=== PATIENT | male | born 1980 | race Caucasian/White ===

== ENCOUNTER 2020-12-05 22:51 | Emergency (ER) | payer OTHER, SELFPAY ==
--- NOTE | ~2020-12-05 | XR_ITS ---
XR knee RT 3V DATE: 12/05/2020 23:50 INDICATION: Fall. Lateral right knee pain. TECHNIQUE: 3 views COMPARISON: None FINDINGS: No fracture or dislocation or joint effusion. No periosteal reaction or bone destruction. N o radiopaque intra-articular loose body or chondrocalcinosis. Knee joint spaces appear preserved. IMPRESSION: Negative Reviewed, dictated and finalized at location A. IMPRESSION: Negative
--- NOTE | ~2020-12-05 | XR_ITS ---
XR ankle RT min 3V DATE: 12/05/2020 23:50 INDICATION: Fall. Lateral right ankle pain TECHNIQUE: 4 views COMPARISON: None FINDINGS: No fracture or dislocation of the ankle or disruption of ankle mortise. No periosteal react ion or bone destruction. IMPRESSION: Negative Reviewed, dictated and finalized at location A. IMPRESSION: Negative
--- NOTE | ~2020-12-05 | XR_ITS ---
XR wrist RT min 3V DATE: 12/05/2020 23:51 INDICATION: Fall. Medial wrist pain. TECHNIQUE: 4 views COMPARISON: None FINDINGS: No fracture or dislocation, periosteal reaction or bone destruction, joint space narrowing, erosive change or chondrocalcinosis. IMPRESSION: Negative Reviewed, dictated and finalized at location A. IMPRESSION: Negative
[2020-12-05 23:02] VITALS: BP 130/87; PULSE 75; RESP 16; TEMP 36.4; O2SAT 98
--- NOTE | 2020-12-06 00:18 | ED.GENADULT ---
HPI - General Adult General Chief complaint: Wound/Laceration Stated complaint: wrist lac Time Seen by Provider: 12/05/20 23:11 Source: patient and family Mode of arrival: ambulatory Limitations: no limitations History of Present Illness HPI narrative: Patient is a 40-year-old male who presents to emergency department for evaluation of laceration to the right wrist patient tripped while carrying a bottle cutting the wrist. Patient notes mild aching pain worse with touch and activity. Patient notes tetanus to be up-to-date. Patient also notes mild pain to the lateral right knee and ankle. Patient presents per private vehicle in no distress. Patient denies other complaints at this time Related Data Home Medications Medication Instructions Recorded Confirmed omeprazole 07/28/19 Allergies Allergy/AdvReac Type Severity Reaction Status Date / Time Sulfa (Sulfonamide Allergy Unknown Verified 04/20/14 13:14 Antibiotics) Review of Systems Review of Systems: All systems reviewed & are unremarkable except as noted in HPI and below PMFSH Family History Family History (Updated 04/20/14 @ 13:15 by DOCTOR UNKNOWN) Other Diabetes mellitus Family history of Alzheimer's disease Family history of cardiovascular disease Hypertension Social History Social History Smoking status: Never smoker Gender identity (if verbalized by the patient): Male Sexual Orientation (if Verbalized by the Patient): Straight or Heterosexual Exam Narrative: Exam Narrative: GENERAL: Well-appearing, well-nourished, and in no acute distress. HEAD: Normocephalic, atraumatic. EYES: PERRLA and EOMI. ENT: Nares clear, no rhinorrhea or epistaxis. Mucous membranes moist. EXTREMITIES: Normal range of motion. No edema. Tenderness to the lateral right knee and ankle joint no deformities SKIN: Warm, dry, no rash. 1 cm laceration along the lateral aspect of the right wrist NEURO: No focal deficits. Alert and oriented x3. Neurovascularly intact PSYCH: Normal mood and affect. Course Course Emergency Course: Patient in the room aware of case findings treatment plan diagnosis agreeing to follow-up as instructed Vital Signs Vital signs: Vital Signs Temperature 97.6 F 12/05/20 23:02 Pulse Rate 75 12/05/20 23:02 Respiratory Rate 16 12/05/20 23:02 Blood Pressure 130/87 12/05/20 23:02 Pulse Oximetry 98 03/18/21 23:02 Temperature 97.6 F 12/05/20 23:02 Pulse Rate 75 12/05/20 23:02 Respiratory Rate 16 12/05/20 23:02 Blood Pressure 130/87 12/05/20 23:02 Pulse Oximetry 98 12/05/20 23:02 Procedures Laceration Laceration 1: Date: 12/06/20 Time: 00:30 Site: hand Side (If applicable): right Size (cm): 2 Description: linear Depth: simple, single layer Local Anesthetic: none Pre-repair: wound explored ====== Skin Level ====== Skin layer closed with: dottie Number of sutures: 3 ====== Subcutaneous Layer ====== ====== Muscle Layer ====== ====== Tendon Layer ====== Medical Decision Making MDM Narrative Medical decision making narrative: Patients injury or pain is consistent with musculoskeletal etiology. No signs of neurological or vascular compromise on exam. Compartments and tisues are soft without signs of compartment syndrome. Pain is felt appropriate for further evaluation on an outpatient basis. Wound closed in the emergency department Vital Signs Vital Signs: Vital Signs Temperature 97.6 F 12/05/20 23:02 Pulse Rate 75 12/05/20 23:02 Respiratory Rate 16 12/05/20 23:02 Blood Pressure 130/87 12/05/20 23:02 Pulse Oximetry 98 12/05/20 23:02 Temperature 97.6 F 12/05/20 23:02 Pulse Rate 75 12/05/20 23:02 Respiratory Rate 16 12/05/20 23:02 Blood Pressure 130/87 12/05/20 23:02 Pulse Oximetry 98 12/05/20 23:02
== END 2020-12-06 00:40 | disposition home or self-care (01) ==
PROVIDERS: Emergency Provider Emergency Medicine; PCP Internal Medicine
DX: S61.511A Laceration without foreign body of right wrist, initial encounter (principal); S80.01XA Contusion of right knee, initial encounter; S93.401A Sprain of unspecified ligament of right ankle, initial encounter; W01.118A Fall on same level from slipping, tripping and stumbling with subsequent striking against other sharp object, initial encounter
CPT/HCPCS: 12001; 73110; 73562; 73610; 99284